=== PATIENT | female | born 1940 | race Caucasian/White ===

== ENCOUNTER 2017-05-24 19:45 | Inpatient (IN) | payer OTHER, MEDICARE ==
[2017-05-24 19:45] VITALS: O2SAT 100
[~2017-05-24 19:45] MED LIST: CALA180T PO; CIPR250T2 PO; IBUP-238 PO; MEVA40TA PO
[2017-05-24 19:50] VITALS: BP 150/88; PULSE 97; RESP 22; TEMP 97.8; O2SAT 99
[2017-05-24 20:15] VITALS: BP 163/72; PULSE 95; RESP 18; TEMP 97.8; O2SAT 100
[2017-05-24] MEDS ORDERED: ONDANSETRON HCL 4 MG/2 ML VIAL IV PUSH ONE (20:15)
--- NOTE | 2017-05-24 20:18 | RADRPT ---
EXAM DATE/TIME: 05/24/2017 19:56 [facility] COMPARISON: No previous studies available for comparison. INDICATIONS : Right sided Weakness AML x 1with expressive aphasia . RADIATION DOSE: 29.62 CTDIvol (mGy) This report was called by Dr. Quezada to Dr. Segovia at 8: 15 PM MEDICAL HISTORY : Hypertension. Hyperthyroidism. SURGICAL HISTORY : None. ENCOUNTER: Initial ACUITY: 1 day PAIN SCALE: Non-responsive LOCATION: Bilateral cranial TECHNIQUE: Multiple contiguous axial images were obtained of the head. Using automated exposure control and adj ustment of the mA and/or kV according to patient size, radiation dose was kept as low as reasonably a chievable to obtain optimal diagnostic quality images. DICOM format image data is available electro nically for review and comparison. FINDINGS: CEREBRUM: The ventricles are normal for age. There is mild bilateral cortical atrophy. No evidence of midline shift, mass lesion, hemorrhage or acute infarction. No extra-axial fluid collections are seen. POSTERIOR FOSSA: The cerebellum and brainstem are intact. The 4th ventricle is midline. The cerebellopontine angle i s unremarkable. EXTRACRANIAL: The visualized portion of the orbits is intact. SKULL: The calvaria is intact. No evidence of skull fracture. CONCLUSION: Normal examination for a patient of this age. Spencer Mckeon MD on May 24, 2017 at 20:15 Board Certified Radiologist. This report was verified electronically.
[2017-05-24 20:21] LABS: I-STAT POTASSIUM 4.3 MMOL/L (3.5-4.9)
[2017-05-24 20:23] LABS: AUTOMATED NEUTROPHIL # 4.5 TH/MM3 (1.8-7.7); BASOPHIL # 0.1 TH/MM3 (0-0.2); BASOPHIL % 0.6 % (0.0-2.0); EOSINOPHIL # 0.4 TH/MM3 (0-0.4); EOSINOPHIL % 3.6 % (0.0-4.0); HEMATOCRIT 38.4 % (35.0-46.0); HEMO FLAGS DIFF FINAL; LYMPH % 43.9 % (9.0-44.0); LYMPHOCYTE # 4.6 TH/MM3 (1.0-4.8); MEAN CELL VOLUME 92.4 FL (80.0-100.0); MEAN CORPUSCULAR HEMOGLOBIN 30.5 PG (27.0-34.0); MONO % 8.9 % (0.0-8.0); PLATELET COUNT 316 TH/MM3 (150-450); RED BLOOD COUNT 4.16 MIL/MM3 (4.00-5.30); RED CELL DISTRIBUTION WIDTH 13.6 % (11.6-17.2); WHITE BLOOD COUNT 10.5 TH/MM3 (4.0-11.0)
[2017-05-24] MEDS: SODIUM CHLOR 0.9% 1000 ML INJ 1,000 ML IV SCH (20:26)
[2017-05-24 20:38] LABS: APTT (PATIENT) 19.9 SEC (24.3-30.1); INTERNATIONAL NORMALIZED RATIO 0.9 RATIO
--- NOTE | 2017-05-24 21:02 | PD ---
HPI Chief Complaint: stroke alert Time Seen by Provider: 20:08 Travel History International Travel<30 days: No Contact w/Intl Traveler<30days: No Traveled to known affect area: No History of Present Illness HPI 76-year-old female presents to the emergency department from home by EMS transport as a stroke alert. According to EMS report patient was noted by to be normal and trouble approximate 30 minutes prior to arrival to the emergency department. Patient has history of hypertension and dyslipidemia as well as hypothyroidism. Patient home was reportedly found with new onset confusion right sided facial weakness right upper extremity weakness and expressive aphasia. Paramedics reported that her blood sugar was 112. No known history of diabetes infection febrile illness injury or fall or blood thinning agent. Upon patient's arrival to the emergency department she was unable to recall the date of demonstrated receptive and expressive aphasia did not appear to have a facial droop and was able to demonstrate bilateral utilization review coordinator strength but due to receptive aphasia was able follow commands for pronator drift limb ataxia or lower extremity motor strength or focal deficit. Patient denies headache or chest pain. Patient otherwise unable to offer any history or timeframe of events. Spouse not available upon patient arrival to the emergency department. [facility] Past Medical History Narrative Medical Hypertension, dyslipidemia, hypothyroidism; nursing notes reviewed Cancer: No Diabetes: No Hepatitis: No Hiatal Hernia: No Thyroid Disease: No Past Surgical History Gynecologic Surgery: Yes (UNILAT. OOPHORECTOMY) Oral Surgery: Yes (T & A) Social History Tobacco Use: No Allergies-Medications (Allergen,Severity, Reaction): Coded Allergies: ampicillin (Unverified Allergy, Severe, VOMITING, 05/16/17) oxycodone (Unverified Allergy, Severe, SYNCOPE, 05/16/17) penicillin G (Unverified Allergy, Severe, VOMITING, 05/16/17) SAME TO ALL "CILLINS" Reported Meds & Prescriptions Reported Meds & Active Scripts Active Reported Cipro (Ciprofloxacin) 250 Mg Tab 250 Mg PO BID Motrin (Ibuprofen) 800 Mg Tab 800 Mg PO Q6-8HPRN Lovastatin 40 Mg Tab 40 Mg PO HS Verapamil Hcl Cr (Verapamil HCl) 180 Mg Tab 180 Mg PO DAILY Review of Systems ROS Limitations: Clinical Condition, Altered Mental Status, Poor Historian Physical Exam Narrative GENERAL: Well-developed well-nourished anxious appearing female in no respiratory distress.T: 97.8F,RR: 22, HR: 97, O2sat 99%, BP: 150/88 SKIN: Warm and dry. HEAD: Atraumatic. Normocephalic. EYES: Pupils equal and round. Extraocular muscles intact. No scleral icterus. No injection or drainage. ENT: No nasal bleeding or discharge. Mucous membranes pink and moist. NECK: Trachea midline. No JVD. CARDIOVASCULAR: Regular rate and rhythm. RESPIRATORY: No accessory muscle use. Clear to auscultation. Breath sounds equal bilaterally. GASTROINTESTINAL: Abdomen soft, non-tender, nondistended. Hepatic and splenic margins not palpable. MUSCULOSKELETAL: Extremities without clubbing, cyanosis, or edema. No obvious deformities. NEUROLOGICAL: Awake and alert. No obvious cranial nerve deficits unable to test peripheral jefferson. Motor grossly within normal limits LUE 5/5 left utilization review coordinator 5/5, RUE 4/5 right utilization review coordinator 4-5/5, BLE unable to follow command for motor strength but resists passive elevation 5/5. Unable to test pronator drift. Limb ataxia. Expressive and receptive aphasia w/o slurring of speech.. PSYCHIATRIC: Appropriate mood and affect; insight and judgment normal. Data Data Last Documented VS Vital Signs Date Time Temp Pulse Resp B/P (MAP) Pulse Ox O2 Delivery O2 Flow Rate FiO2 05/24/17 21:09 99 Nasal Cannula 2.00 05/24/17 20:15 97.8 95 18 163/72 (102) Orders Orders Ct Brain W/O Iv Contrast(Rout) (05/24/17 ) Diet Npo (05/25/17 Breakfast) Activity Bed Rest (05/24/17 ) Electrocardiogram (05/24/17 ) I-Stat Creatinine (05/24/17 20:07) I-Stat Profile (05/24/17 20:07) Prothrombin Time / Inr (Pt) (05/24/17 20:07) Act Partial Throm Time (Ptt) (05/24/17 20:07) Complete Blood Count With Diff (05/24/17 20:07) Fibrinogen (05/24/17 20:07) Creatine Kinase (Cpk) (05/24/17 20:07) Troponin I (05/24/17 20:07) Ua Includes Microscopic (05/24/17 20:07) Drug Screen, Random Urine (05/24/17 20:07) Type And Screen (05/24/17 20:07) Beta Hcg (Quant/Titer) (05/24/17 20:07) Consult Neurology (05/24/17 ) Blood Glucose (05/24/17 20:07) Ecg Monitoring (05/24/17 20:07) Neuro Checks Q2HX12,Q4H (05/24/17 20:07) Nursing Bedside Swallow Assess .ONCE (05/24/17 20:07) Iv Access Insert/Monitor (05/24/17 20:07) NPO (05/24/17 20:07) Oximetry (05/24/17 20:07) Oxygen Administration (05/24/17 20:07) Resp Oxygen Dk C Titrat 1-4 L (05/24/17 20:07) Cath For Specimen (05/24/17 20:07) Ondansetron Inj (Zofran Inj) (05/24/17 20:15) Ct Brain W/O Iv Contrast(Rout) (05/24/17 20:14) Sodium Chlor 0.9% 1000 Ml Inj (Ns 1000 M (05/24/17 20:15) Mra Brain W/O Contrast (Cow) (05/24/17 ) (Hub Use Only)Inp Phy Cons/Ref (05/24/17 ) Mri Brain W/O Contrast (05/24/17 ) Admit Order (Ed Use Only) (05/24/17 ) ^ Saline Lock (05/24/17 21:22) Resp Oxygen Dk C Titrat 1-4 L (05/24/17 ) Notify Dr: Other (05/24/17 21:22) Sodium Chloride 0.9% Flush (Ns Flush) (05/25/17 09:00) Sodium Chloride 0.9% Flush (Ns Flush) (05/24/17 21:30) Labs Laboratory Tests Test 05/24/17 19:49 White Blood Count 10.5 TH/MM3 Red Blood Count 4.16 MIL/MM3 Hemoglobin 12.7 GM/DL Bedside Hemoglobin 12.9 G/DL Hematocrit 38.4 % Bedside Hematocrit 38.0 % Mean Corpuscular Volume 92.4 FL Mean Corpuscular Hemoglobin 30.5 PG Mean Corpuscular Hemoglobin Concent 33.0 % Red Cell Distribution Width 13.6 % Platelet Count 316 TH/MM3 Mean Platelet Volume 7.2 FL Neutrophils (%) (Auto) 43.0 % Lymphocytes (%) (Auto) 43.9 % Monocytes (%) (Auto) 8.9 % Eosinophils (%) (Auto) 3.6 % Basophils (%) (Auto) 0.6 % Neutrophils # (Auto) 4.5 TH/MM3 Lymphocytes # (Auto) 4.6 TH/MM3 Monocytes # (Auto) 0.9 TH/MM3 Eosinophils # (Auto) 0.4 TH/MM3 Basophils # (Auto) 0.1 TH/MM3 CBC Comment DIFF FINAL Differential Comment Prothrombin Time 10.0 SEC Prothromb Time International Ratio 0.9 RATIO Activated Partial Thromboplast Time 19.9 SEC Fibrinogen 275 mg/dL Bedside Sodium 138 MMOL/L Bedside Potassium 4.3 MMOL/L Bedside Chloride 103 MMOL/L Bedside Blood Urea Nitrogen 20 MG/DL Bedside Creatinine 1.1 MG/DL Bedside Glucose 112 MG/DL Total Creatine Kinase 101 U/L Troponin I 0.02 NG/ML Human Chorionic Gonadotropin, Quant 6 MIU/ML MDM Medical Decision Making Medical Screen Exam Complete: Yes Emergency Medical Condition: Yes Medical Record Reviewed: Yes Interpretation(s) EKG: NSR rate 68 no acute injury or ectopy noted Last Impressions Head CT 05/24/17 0000 Signed Impressions: Service Date/Time: Wednesday, May 24, 2017 19:56 - CONCLUSION: Normal examination for a patient of this age. Spencer Mckeon MD CBC & BMP Diagram 05/24/17 19:49 Vital Signs Date Time Temp Pulse Resp B/P (MAP) Pulse Ox O2 Delivery O2 Flow Rate FiO2 05/24/17 21:09 99 Nasal Cannula 2.00 05/24/17 20:15 97.8 95 18 163/72 (102) 100 Nasal Cannula 05/24/17 19:50 97.8 97 22 150/88 (108) 99 05/24/17 19:45 100 2.00 05/24/17 19:45 100 Nasal Cannula 2.00 troponin I: 0.02, not elevated bmp: grossly wnl coags: wnl Differential Diagnosis stroke alert, cva-bland v hemorrhagic, tia, ams, thyroid dysfunction, arrhythmia Narrative Course Stroke alert called --called placed to neurology oncall NIHSS:6 as available to test @ 19:50 , to CT at the bedside-- last normal 6:30 PM noted new abnormal [address] 20:00 repeat exam NIHSS: 1; change in exam discussed with control director neurologist Dr Redman -- not thrombolytic candidate will start aspirin plavix if daily aspirin Diagnosis Primary Impression: TIA (transient ischemic attack) Romelia Elizondo MD May 24, 2017 21:02
[2017-05-24] MEDS ORDERED: SODIUM CHLORIDE 0.9% FLUSH 10 ML FLUSH IVF PRN (21:30)
[2017-05-24] MEDS ORDERED: SODIUM CHLORIDE 0.9% FLUSH 5 ML FLUSH IV FLUSH PRN (21:45)
--- NOTE | 2017-05-24 21:58 | RADRPT ---
EXAM DATE/TIME: 05/24/2017 21:18 [facility] COMPARISON: No previous studies available for comparison. INDICATIONS : Stroke. MEDICAL HISTORY : Hypertension. Hypercholesterolemia. Hypothyroidism. SURGICAL HISTORY : Uterine sling sx. ENCOUNTER: Initial ACUITY: 1 day PAIN SCORE: 3/10 LOCATION: Bilateral cranial TECHNIQUE: Multiplanar, multisequence MRI of the brain was performed without contrast. FINDINGS: No recent infarct identified. Mild white matter ischemic changes. There is fairly extensive susceptib ility artifact in the left parietal region and left cerebellar hemisphere which could be related to h emosiderin deposition, possibly from remote hemorrhage. There is no mass effect or midline shift. No hydrocephalus. Pituitary is normal in size. CONCLUSION: 1. No acute findings. No recent infarct. Hemosiderin deposition predominantly left parietal region an d left cerebellar hemisphere, likely remote. Godwin Calle MD on May 24, 2017 at 21:53 Board Certified Radiologist. This report was verified electronically.
--- NOTE | 2017-05-24 22:02 | RADRPT ---
EXAM DATE/TIME: 05/24/2017 21:18 [facility] COMPARISON: No previous studies available for comparison. INDICATIONS : Stroke. MEDICAL HISTORY : Hypertension. Hypothyroidism. Hypercholesterolemia. SURGICAL HISTORY : Uterine sling sx. ENCOUNTER: Initial ACUITY: 1 day PAIN SCORE: 3/10 LOCATION: Bilateral cranial Please note a normal MRA of the brain does not entirely exclude the possibility of a small aneurysm, nor the possibility of distal intracranial vessel disease. TECHNIQUE: 3D time of flight MRA was performed. Source images, multiplanar STS MIP, and 3D volume MIP reconstru ctions were reviewed. FINDINGS: There is excellent visualization of the major intracranial arteries out to the second-order branch ve ssels. There is no evidence for aneurysm, vessel truncation or stenosis, and no evidence for vascula r malformation. CONCLUSION: Normal examination for a patient of this age. Godwin Calle MD on May 24, 2017 at 21:57 Board Certified Radiologist. This report was verified electronically.
[2017-05-24 22:07] LABS: BACTERIA, URINE RARE /hpf; BLOOD, URINE NEG (NEG); GLUCOSE,URINE NEG (NEG); KETONE, URINE NEG (NEG); NITRITE,URINE NEG (NEG); PH, URINE 7.5 (5.0-8.5); SQUAMOUS EPITHELIAL CELL URINE 1 /hpf (0-5); URINE COLOR LIGHT-YELLOW (YELLW/STRAW)
[2017-05-24 22:25] LABS: FREE T4 1.11 NG/DL (0.76-1.46)
[2017-05-24] MEDS ORDERED: LOVA40TA PO (23:03)
[2017-05-24] MEDS ORDERED: VERA180C PO (23:03)
[2017-05-24] MEDS ORDERED: LEVO25TA4 PO (23:03)
[2017-05-24 23:31] VITALS: BP 145/78; PULSE 80; RESP 14; O2SAT 95
--- NOTE | 2017-05-24 23:50 | HHI.HP ---
HPI [facility] Alexey Ray M.D. Admission Diagnosis TIA Diagnoses: (1) Altered mental status (2) TIA (transient ischemic attack) Chief Complaint: lightheadedness and diaphoresis following a shower Travel History International Travel<30 Days: No Contact w/Intl Traveler <30 Da: No Traveled to Known Affected Are: No History of Present Illness Written by Migdalia Werner, acting as scribe for Dr. Kate on 05/24/17 at 23:36. The patient took a shower, felt lightheaded after coming out of shower, and she sat on a chair between two chest of drawers. According to her , she was sweating profusely and confused when he found her just before 7 pm - her called EMS. Her is present at bedside and says she wasn't having difficulty speaking but couldn't move. The patient's eyes were "fluttering". Denies fecal or urinary incontinence. The patient reports memory loss surrounding the event. Denies any history of seizures. In the past couple of weeks: denies fever, nausea, vomiting, diarrhea, black stool, red stool, dysuria, chest pain, shortness of breath, lightheaded ness. She reports being very active and walking daily. Review of Systems Except as stated in HPI: all other systems reviewed are Neg Past Family Social History Past Medical History Hypertension Hypothyroidism Hyperlipidemia Denies CAD, atrial fibrillation, diabetes mellitus, CHF, breathing problems, copd, asthma, liver problems, kidney problems, DVT, PE, CVA, seizures, or cancers . Past Surgical History Pelvic sling 2013 Hysterectomy Appendectomy . Reported Medications Reported Meds & Active Scripts Active Reported Levothyroxine (Levothyroxine Sodium) 25 Mcg Tab Unknown Dose PO DAILY Lovastatin 40 Mg Tab 40 Mg PO HS Verapamil HCl ER (Verapamil HCl) 180 Mg Cap 1 Tab PO DAILY . Allergies: Coded Allergies: ampicillin (Unverified Allergy, Severe, VOMITING, 05/16/17) oxycodone (Unverified Allergy, Severe, SYNCOPE, 05/16/17) penicillin G (Unverified Allergy, Severe, VOMITING, 05/16/17) SAME TO ALL "CILLINS" Active Ordered Medications Current Medications Ondansetron HCl (Zofran Inj) 4 mg ONCE ONCE IV PUSH Last administered on 20:23; Start 05/24/17 at 20:15; Stop 05/24/17 at 20:16; Status DC Sodium Chloride 1,000 ml @ 70 mls/hr [id number] IV Last administered on 20:26; Start 05/24/17 at 20:15 Sodium Chloride (NS Flush) 2 ml BID IV FLUSH ; Start 05/25/17 at 09:00; Stop at 09:00; Status DC Sodium Chloride (NS Flush) 2 ml UNSCH PRN IVF FLUSH AFTER USING IV ACCESS; Start 05/24/17 at 21:30; Stop 05/24/17 at 21:48; Status DC IV Flush (NS Flush) 2 ml BID IV FLUSH ; Start 05/25/17 at 09:00 IV Flush (NS Flush) 2 ml UNSCH PRN IV FLUSH FLUSH AFTER USING IV ACCESS; Start 05/24/17 at 21:45 . Family History Father had an aortic aneurysm . Social History Tobacco: quit in 1978 Alcohol: occasional glass of wine Illicit Drugs: denies . Physical Exam Vital Signs Vital Signs Date Time Temp Pulse Resp B/P (MAP) Pulse Ox O2 Delivery O2 Flow Rate FiO2 05/24/17 23:31 80 14 145/78 (100) 95 2.00 05/24/17 21:09 99 Nasal Cannula 2.00 05/24/17 20:15 97.8 95 18 163/72 (102) 100 Nasal Cannula 05/24/17 19:50 97.8 97 22 150/88 (108) 99 05/24/17 19:45 100 2.00 05/24/17 19:45 100 Nasal Cannula 2.00 Physical Exam GENERAL: This is a well-nourished, well-developed patient, in no apparent distress. SKIN: No rashes, ecchymoses or lesions. Cool and dry. HEAD: Atraumatic. Normocephalic. EYES: Pupils equal round and reactive. No scleral icterus. No injection or drainage. ENT: Nose without bleeding, purulent drainage or septal hematoma. Airway patent. NECK: Trachea midline. No JVD. CARDIOVASCULAR: Regular rate and rhythm without murmurs, gallops, or rubs. RESPIRATORY: Clear to auscultation. Breath sounds equal bilaterally. No wheezes , rales, or rhonchi. GASTROINTESTINAL: Abdomen soft, non-tender, nondistended. No hepato-splenomegaly , or palpable masses. No guarding. MUSCULOSKELETAL: Extremities without clubbing, cyanosis, or edema. No calf tenderness. NEUROLOGICAL: Awake and alert. Motor and sensory grossly within normal limits. Normal speech. . Laboratory Laboratory Tests Test 05/24/17 19:49 05/24/17 21:30 White Blood Count 10.5 Red Blood Count 4.16 Hemoglobin 12.7 Bedside Hemoglobin 12.9 Hematocrit 38.4 Bedside Hematocrit 38.0 Mean Corpuscular Volume 92.4 Mean Corpuscular Hemoglobin 30.5 Mean Corpuscular Hemoglobin Concent 33.0 Red Cell Distribution Width 13.6 Platelet Count 316 Mean Platelet Volume 7.2 Neutrophils (%) (Auto) 43.0 Lymphocytes (%) (Auto) 43.9 Monocytes (%) (Auto) 8.9 Eosinophils (%) (Auto) 3.6 Basophils (%) (Auto) 0.6 Neutrophils # (Auto) 4.5 Lymphocytes # (Auto) 4.6 Monocytes # (Auto) 0.9 Eosinophils # (Auto) 0.4 Basophils # (Auto) 0.1 CBC Comment DIFF FINAL Differential Comment Prothrombin Time 10.0 Prothromb Time International Ratio 0.9 Activated Partial Thromboplast Time 19.9 Fibrinogen 275 Bedside Sodium 138 Bedside Potassium 4.3 Bedside Chloride 103 Bedside Blood Urea Nitrogen 20 Bedside Creatinine 1.1 Bedside Glucose 112 Total Creatine Kinase 101 Troponin I 0.02 Free Thyroxine 1.11 Thyroid Stimulating Hormone 3rd Gen 7.120 Human Chorionic Gonadotropin, Quant 6 Urine Color LIGHT-YELLOW Urine Turbidity CLEAR Urine pH 7.5 Urine Specific Cornell 1.009 Urine Protein NEG Urine Glucose (UA) NEG Urine Ketones NEG Urine Occult Blood NEG Urine Nitrite NEG Urine Bilirubin NEG Urine Urobilinogen LESS THAN 2.0 Urine Leukocyte Esterase MOD Urine RBC 1 Urine WBC 7 Urine Squamous Epithelial Cells 1 Urine Bacteria RARE Urine Opiates Screen NEG Urine Barbiturates Screen NEG Urine Amphetamines Screen NEG Urine Benzodiazepines Screen NEG Urine Cocaine Screen NEG Urine Cannabinoids Screen NEG Result Diagram: 05/24/171948 Imaging Last Impressions Head Magnetic Resonance Angiography 05/24/17 0000 Signed Impressions: Service Date/Time: Wednesday, May 24, 2017 21:18 - CONCLUSION: Normal examination for a patient of this age. Godwin Calle MD Head CT 05/24/17 0000 Signed Impressions: Service Date/Time: Wednesday, May 24, 2017 19:56 - CONCLUSION: Normal examination for a patient of this age. Spencer Mckeon MD Brain MRI 05/24/17 Signed Impressions: Service Date/Time: Wednesday, May 24, 2017 21:18 - CONCLUSION: 1. No acute findings. No recent infarct. Hemosiderin deposition predominantly left parietal region and left cerebellar hemisphere, likely remote. Godwin Calle MD Caprini VTE Risk Assessment Caprini VTE Risk Assessment: Mod/High Risk (score >= 2) Caprini Risk Assessment Model Point Value = 1 Point Value = 2 Point Value = 3 Point Value = 5 Age 41-60 Minor surgery BMI > 25 kg/m2 Swollen legs Varicose veins or History of unexplained or recurrent spontaneous Oral contraceptives or hormone replacement Sepsis (< 1 month) Serious lung disease, including pneumonia (< 1 month) Abnormal pulmonary function Acute myocardial infarction Congestive heart failure (< 1 month) History of inflammatory bowel disease Medical patient at bed rest Age 61-74 Arthroscopic surgery Major open surgery (> 45 min) Laparoscopic surgery (> 45 min) Malignancy Confined to bed (> 72 hours) Immobilizing plaster cast Central venous access Age >= 75 History of VTE Family history of VTE Factor V Leiden Prothrombin [id number] Lupus anticoagulant Anticardiolipin antibodies Elevated serum homocysteine Heparin-induced thrombocytopenia Other congenital or acquired thrombophilia Stroke (< 1 month) Elective arthroplasty Hip, pelvis, or leg fracture Acute spinal cord injury (< 1 month) Prophylaxis Regimen Total Risk Factor Score Risk Level Prophylaxis Regimen 0-1 Low Early ambulation 2 Moderate Order ONE of the following: *Sequential Compression Device (SCD) *Heparin 5000 units SQ BID 3-4 Higher Order ONE of the following medications: *Heparin 5000 units SQ TID *Enoxaparin/Lovenox 40 mg SQ daily (WT < 150 kg, CrCl > 30 mL/min) *Enoxaparin/Lovenox 30 mg SQ daily (WT < 150 kg, CrCl > 10-29 mL/min) *Enoxaparin/Lovenox 30 mg SQ BID (WT < 150 kg, CrCl > 30 mL/min) AND/OR *Sequential Compression Device (SCD) 5 or more Highest Order ONE of the following medications: *Heparin 5000 units SQ TID (Preferred with Epidurals) *Enoxaparin/Lovenox 40 mg SQ daily (WT < 150 kg, CrCl > 30 mL/min) *Enoxaparin/Lovenox 30 mg SQ daily (WT < 150 kg, CrCl > 10-29 mL/min) *Enoxaparin/Lovenox 30 mg SQ BID (WT < 150 kg, CrCl > 30 mL/min) AND *Sequential Compression Device (SCD) Assessment and Plan Problem List: (1) TIA (transient ischemic attack) ICD Code: G45.9 - Transient cerebral ischemic attack, unspecified Status: Acute (2) Altered mental status ICD Code: R41.82 - Altered mental status, unspecified Assessment and Plan AMS - TIA vs seizure vs syncope vs orthostatic hypotension - check echocardiogram to evaluate cardiac structure and function - check carotid ultrasound to evaluate for carotid stenosis - check orthostatic vital signs - check HgA1C to evaluate for Diabetes and lipid profile to evaluate effectiveness of statin therapy - monitor continuous cardiac telemetry to evaluate for arrhythmia - start aspirin - neurology consulted - check EEG Hypertension - hold verapamil for now - monitor trends in blood pressure and adjust treatment as necessary Hyperlipidemia - continue home lovastatin Hypothyroidism - TSH elevated at 7.12 but free T4 normal at 1.11 - continue home Synthroid - verifies 25 mcg p.o. daily as dosage DVT prophylaxis - SCDs/TEDs . This note was transcribed by flip [Migdalia Werner]. I, Dr. Hema Kate personally performed the history, physical exam, and medical decision making; and confirmed the accuracy of the information in the transcribed note. Authenticated by Dr. Hema Kate on 05/24/17 at 23:36. Discussed Condition With ER physician, patient, and patient's . Physician Certification 2 Midnight Certification Type: Admission for Inpatient Services Order for Inpatient Services The services are ordered in accordance with Medicare regulations or non- Medicare payer requirements, as applicable. In the case of services not specified as inpatient-only, they are appropriately provided as inpatient services in accordance with the 2-midnight benchmark. Estimated LOS (days): 3 days is the estimated time the patient will need to remain in the hospital, assuming treatment plan goals are met and no additional complications. Post-Hospital Plan: Home Migdalia Werner May 24, 2017 23:50 Hema Kate MD May 25, 2017 00:50
[2017-05-25] VITALS (12 sets, daily range): BP systolic 151–193; BP diastolic 70–100; PULSE 53–81; RESP 15–20; TEMP 98.2–98.4; O2SAT 96–99
[2017-05-25] MEDS ORDERED: PRAVASTATIN SOD 40 MG TAB PO SCH (00:15)
--- NOTE | 2017-05-25 01:24 | RADRPT ---
EXAM DATE/TIME: 05/24/2017 22:48 [facility] COMPARISON: No previous studies available for comparison. INDICATIONS : Cerebrovascular accident. MEDICAL HISTORY : Hypertension. Thyroid disease. SURGICAL HISTORY : Oral T&A. Uterine sling. ENCOUNTER: Initial ACUITY: 1 day PAIN SCORE: 0/10 LOCATION: Bilateral neck PEAK SYSTOLIC VELOCITIES (cm/sec): ICA/CCA RATIO: Right: 1.2 Left: 0.9 ICA: Right: 117 Left: 82 CCA: Right: 94 Left: 110 ECA: Right: 26 Left: 92 VERTEBRAL: Right: 44 antegrade Left: 50 antegrade Elevated flow velocities and ICA/CCA ratios have been found to correlate with increased degrees of vessel stenosis, calculated as percentage of diameter relative to a normal segment of distal ICA/CCA FINDINGS: RIGHT CAROTID: No significant stenosis is visualized. The waveforms are within normal limits. LEFT CAROTID: No significant stenosis is visualized. The waveforms are within normal limits. VERTEBRAL ARTERIES: Antegrade flow is seen in both vertebral arteries. MISCELLANEOUS: None. CONCLUSION: 1. Mild visible plaque formation in the carotid arteries bilaterally but without evidence for hemodyn amically significant stenosis. Vertebral artery flow antegrade bilaterally. Godwin Calle MD on May 25, 2017 at 1:22 Board Certified Radiologist. This report was verified electronically.
[2017-05-25 05:57] LABS: LDL CHOLESTEROL 107 MG/DL (0-99)
[2017-05-25] MEDS ORDERED: LEVOTHYROXINE SODIUM 25 MCG TAB PO SCH (06:00)
--- NOTE | 2017-05-25 08:26 | EKG ---
Date Performed: 05/24/2017 Time Performed: 20:18:21 PTAGE: 76 years EKG: Sinus rhythm NORMAL ECG PREVIOUS TRACING : 07/06/2004 14.47 No significant change from previous tracing noted. DOCTOR: Joo Delarosa Interpretating Date/Time 05/25/2017 08:25:01
[2017-05-25] MEDS ORDERED: VERA1TAB17 PO (08:29)
[2017-05-25] MEDS ORDERED: LEVO50TA4 PO (08:29)
[2017-05-25] MEDS ORDERED: SODIUM CHLORIDE 0.9% FLUSH 10 ML FLUSH IV FLUSH SCH (09:00)
[2017-05-25] MEDS ORDERED: ENOXAPARIN SODIUM 40 MG/0.4 ML SYRINGE SQ SCH (09:00)
[2017-05-25] MEDS ORDERED: ASPIRIN EC 81 MG TABEC PO SCH (09:00)
[2017-05-25] MEDS ORDERED: SODIUM CHLORIDE 0.9% FLUSH 5 ML FLUSH IV FLUSH SCH (09:00)
[2017-05-25] MEDS: SODIUM CHLOR 0.9% 1000 ML INJ 1,000 ML IV SCH (10:33)
[2017-05-25 12:06] LABS: HEMOGLOBIN A1a 0.8 %; HEMOGLOBIN A1b 1.9 %; HEMOGLOBIN Ao 84.9 %; HEMOGLOBIN LA1C 2.1 %
--- NOTE | 2017-05-25 12:28 | MG ---
cc: FOX SHI MD Lab No: Date: 05/25/2017 Age: Sex: F Race: DATE OF 1940 REFERRING PHYSICIAN Alphonso HYDE. MEDICAL HISTORY Thyroid disease, hypertension, alcohol use, hyperlipidemia, came in as stroke alert, new onset confusion, right-sided facial and upper extremity weakness with expressive dysphasia. MEDICATIONS 1. Synthroid. 2. Pravachol. DESCRIPTION The background activity is 6-7 Hz theta bilateral and symmetrical. There is excessive muscle and movement artifact during the EEG recording. Hyperventilation was not done. Photic stimulation did not elicit a driving response. There were no electrographic seizures or epileptiform discharges noted during the recording. INTERPRETATION This is awake EEG. The background slowing may indicate mild encephalopathy. No ictal activity was noted and no epileptiform discharges were noted during the recording. Clinical correlation is recommended. Fox Shi MD RGO/TLL /11:42 AM /12:20 PM MTDSaul
--- NOTE | 2017-05-25 12:31 | ECHRPT ---
Indication: CVA/TIA CONCLUSIONS Normal left ventricular size. Wall thickness is measured at the upper limits of normal. The left ventricular systolic function is normal with an estimated ejection fraction in the range of 55-60%. Trace mitral valve regurgitation. Aortic valve sclerosis is present. Mild aortic valve regurgitation. BP: 159 / 77 HR: Rhythm: Sinus MEASUREMENTS (Male / Female) Normal Values Technical Quality:Good 2D ECHO LV Diastolic Diameter PLAX 4.1 cm 4.2 - 5.9 / 3.9 - 5.3 cm LV Systolic Diameter PLAX 3.0 cm IVS Diastolic Thickness 1.0 cm 0.6 - 1.0 / 0.6 - 0.9 cm LVPW Diastolic Thickness 0.7 cm 0.6 - 1.0 / 0.6 - 0.9 cm LV Relative Wall Thickness 0.4 LA Systolic Diameter LX 3.0 cm 3.0 - 4.0 / 2.7 - 3.8 cm DOPPLER AV Peak Velocity 136.0 cm/s AV Peak Gradient 7.4 mmHg LVOT Peak Velocity 89.3 cm/s LVOT Peak Gradient 3.2 mmHg Mitral E Point Velocity 76.0 cm/s Mitral A Point Velocity 72.6 cm/s Mitral E to A Ratio 1.0 TR Peak Velocity 240.0 cm/s TR Peak Gradient 23.0 mmHg FINDINGS LEFT VENTRICLE Normal left ventricular size. Wall thickness is measured at the upper limits of normal. The left ventricular systolic function is normal with an estimated ejection fraction in the range of 55-60%. RIGHT VENTRICLE Normal right ventricular size and systolic function. LEFT ATRIUM The left atrial size is normal. RIGHT ATRIUM The right atrial size is normal. ATRIAL SEPTUM Normal atrial septal thickness without atrial level shunting by limited color doppler interrogation. AORTA The aortic root and proximal ascending aorta are normal in size on limited imaging. MITRAL VALVE Trace mitral valve regurgitation. AORTIC VALVE Aortic valve sclerosis is present. Mild aortic valve regurgitation. TRICUSPID VALVE Structurally normal tricuspid valve. No tricuspid valve stenosis or regurgitation. PULMONARY VALVE The pulmonary valve is not well visualized. VESSELS The inferior vena cava is normal in size. PERICARDIUM No pericardial effusion. Steve Pruitt MD, FACC (Electronically Signed) Final Date:25 May 2017 12:30
--- NOTE | 2017-05-25 13:25 | HHI.PR ---
Subjective Remarks Follow-up for TIA No further episodes of dizziness and lightheadedness. No focal deficits. Speech is normal, no weakness, slurring of speech or cognitive problems. Denies any chest pain or headache. Objective Vitals Vital Signs Date Time Temp Pulse Resp B/P (MAP) Pulse Ox O2 Delivery O2 Flow Rate FiO2 05/25/17 11:51 98.2 53 18 158/70 (99) 99 05/25/17 08:10 77 20 187/89 (121) 97 179/83 (115) 168/74 (105) 05/25/17 08:00 71 05/25/17 07:52 98 Nasal Cannula 2.00 05/25/17 07:50 98.2 71 17 187/89 (121) 98 05/25/17 04:00 54 05/25/17 03:28 98.2 60 18 159/77 (104) 98 05/25/17 00:38 98.3 81 18 151/74 (99) 96 05/25/17 00:30 79 05/24/17 23:31 80 14 145/78 (100) 95 2.00 05/24/17 21:09 99 Nasal Cannula 2.00 05/24/17 20:15 97.8 95 18 163/72 (102) 100 Nasal Cannula 05/24/17 19:50 97.8 97 22 150/88 (108) 99 05/24/17 19:45 100 2.00 05/24/17 19:45 100 Nasal Cannula 2.00 Result Diagram: 05/24/179 Imaging Last Impressions Head Magnetic Resonance Angiography 05/24/17 0000 Signed Impressions: Service Date/Time: Wednesday, May 24, 2017 21:18 - CONCLUSION: Normal examination for a patient of this age. Godwin Calle MD Head CT 05/24/17 0000 Signed Impressions: Service Date/Time: Wednesday, May 24, 2017 19:56 - CONCLUSION: Normal examination for a patient of this age. Spencer Mckeon MD Carotid Artery Ultrasound 05/24/17 0000 Signed Impressions: Service Date/Time: Wednesday, May 24, 2017 22:48 - CONCLUSION: 1. Mild visible plaque formation in the carotid arteries bilaterally but without evidence for hemodynamically significant stenosis. Vertebral artery flow antegrade bilaterally. Godwin Calle MD Brain MRI 05/24/17 0000 Signed Impressions: Service Date/Time: Wednesday, May 24, 2017 21:18 - CONCLUSION: 1. No acute findings. No recent infarct. Hemosiderin deposition predominantly left parietal region and left cerebellar hemisphere, likely remote. Godwin Calle MD Objective Remarks Not in distress, well-nourished, looks stated age Supple neck, no masses or thyromegaly, trachea midline Normal rate and regular rhythm, no murmurs gallops or rubs appreciated. Clear to auscultation and symmetric bilaterally, normal respiratory effort. Normal bowel sounds, soft, non-tender, nondistended, no guarding. Extremities without clubbing, cyanosis, or edema. AAO x3, no cranial nerve deficits, moves all 4 extremities, no focal neurologic deficits, negative for Babinski A/P Problem List: (1) TIA (transient ischemic attack) ICD Code: G45.9 - Transient cerebral ischemic attack, unspecified Status: Acute (2) Altered mental status ICD Code: R41.82 - Altered mental status, unspecified Assessment and Plan AMS - TIA vs seizure vs syncope vs orthostatic hypotension - Likely vasovagal versus orthostasis. Mildly orthostatic, repeat orthostatic blood pressure. Echocardiogram unremarkable, carotid ultrasound did not show any stenosis, MRI unremarkable. EEG did not show any epileptiform discharges. Continue aspirin, hemoglobin A1c pending. Discharged once cleared by neurology Hypertension -May restart verapamil Hyperlipidemia - continue home lovastatin Hypothyroidism - TSH elevated at 7.12 but free T4 normal at 1.11 - continue home Synthroid - DVT prophylaxis - SCDs/TEDs . Discharge patient to home Condition on discharge: Improved Regular Diet as tolerated Ad Alie activity Rx written: Aspirin 81 mg daily Follow-up with primary care physician one week Discharge time: Less than 35 minutes Citlali Liz MD May 25, 2017 13:25
[2017-05-25] MEDS ORDERED: LEVOTHYROXINE SODIUM 50 MCG TAB PO SCH (14:00)
[2017-05-25] MEDS ORDERED: VERAPAMIL HCL 240 MG SUSTAINED RELEASE TAB PO SCH (14:00)
--- NOTE | 2017-05-25 17:42 | MB ---
cc: ELISA RAMIRES M.D. DATE OF CONSULTATION: 05/25/2017. REASON FOR CONSULTATION: Possible TIA. HISTORY OF PRESENT ILLNESS: Ms. Ladd is a very nice 76-year-old female who was well until yesterday. She was in the shower taking a hot shower when she got out and had an episode where she almost passed out. He went on check on her. She was between the two pieces of furniture sitting on the floor. She did not lose consciousness but felt very lightheaded, was diaphoretic and pale. No focal weakness or tonic clonic activity. No speech change. Had an episode similar to this several years ago thought to be due to low blood pressure. PAST MEDICAL HISTORY: 1. Hypertension. 2. Hypothyroidism. 3. Hyperlipidemia. 4. Hysterectomy. 5. Appendectomy. MEDICATIONS AT HOME: 1. Levothyroxine. 2. Lovastatin. 3. Verapamil. ALLERGIES: 1. AMPICILLIN. 2. OXYCODONE. 3. PENICILLIN. NEUROLOGICAL EXAMINATION: VITAL SIGNS: Blood pressure is 187/89 supine and 168/74 standing. Pulse is 77. Respirations 20. Temperature is 98.4 degrees. HIGHER CORTICAL FUNCTIONS: Normal. CRANIAL NERVES: Intact. MOTOR: Normal strength and tone of all groups. There is no drift. REFLEXES: Symmetric. There is no Babinski sign present. IMAGING STUDIES: MRI of the brain is normal. CT brain is within normal limits. Carotid ultrasound shows no evidence of any significant stenosis. There is mild plaque formation but none of it is significant. MRA brain is normal. EEG shows mild slowing, probably due to drowsiness, otherwise normal. No seizure focus identified. CARDIAC STUDIES: Echocardiogram shows ejection fraction 55% to 60%, trace mitral valve regurgitation, aortic valve sclerosis, mild aortic regurgitation is seen. LABS: The white count is 10,500, hemoglobin 12.7, hematocrit is 38.4%, platelet count 316,000. PT 10. INR 0.9. APTT 19.9. Sodium is 138, potassium 4.3, chloride 103, the BUN is 20, creatinine 1.1, glucose 112. Cholesterol 183, LDL 107. IMPRESSION: Probable pre-syncope suspected a hypotension related to the hot shower. I do not think this is a TIA or a stroke. No evidence of seizures. The patient is stable neurologically for discharge. I did advise her to avoid any extreme heat in the future. MD MARTA Healy/ALFIE /4:49 PM /5:30 PM
== END 2017-05-25 17:51 | disposition home or self-care (01) | DRG 312 ==
LOC: NEPC 19:45 → NEDA 21:24 → OBSVTOIN 22:58 → NEPFCDU 23:50
PROVIDERS: ADMIT Family Medicine; ATTEND Family Medicine
DX: I95.1 Orthostatic hypotension (principal); R47.01 Aphasia; I10 Essential (primary) hypertension; E78.5 Hyperlipidemia, unspecified; E03.9 Hypothyroidism, unspecified; Z88.0 Allergy status to penicillin; Z88.1 Allergy status to other antibiotic agents; Z88.5 Allergy status to narcotic agent; Z87.891 Personal history of nicotine dependence
CPT/HCPCS: 70450; 70544; 70551; 80061; 80307; 81001; 82435; 82550; 82565; 82947; 83036; 84132; 84295; 84439; 84443; 84484; 84520; 84702; 85025; 85384; 85610; 85730; 86850; 86900; 86901; 93005; 93306; 93880; 95819; 96374; G8987-GO; G8988-GO; G8989-GO; J1650; J2405; J7030